=== PATIENT | male | born 1990 | race Caucasian/White ===

== ENCOUNTER 2017-11-19 20:37 | Emergency (ER) | payer BC ==
[2017-11-19] MEDS ORDERED: Bacitracin/Neomycin/Polymyxin B Oint 0.9 GM U/D Packet TOP ONE (20:44)
--- NOTE | 2017-11-19 21:08 | EDM.PDOC ---
ED HPI GENERAL MEDICAL PROBLEM - General Chief Complaint: General Stated Complaint: nose injury, top lip injury Time Seen by Provider: 11/19/17 20:37 Source of Information: Reports: Patient History Limitations: Reports: No Limitations - History of Present Illness INITIAL COMMENTS - FREE TEXT/NARRATIVE: Patient is a 27-year-old gentleman who was kicked in the face by a horse he has 2 lacerations one over the bridge of the nose and the second one over the left side of the upper lip the one in the upper lip is about 1 cm it is above the [place]cd[place] border no one on the pros on the bridge of the nose is about 1 cm but semicircular Onset: Today, Sudden Duration: Minutes:, Constant Location: Reports: Face (Bridge of the nose and left upper lip) Improves with: Reports: Cold Therapy Worsens with: Reports: Movement Context: Reports: Trauma Associated Symptoms: Reports: No Other Symptoms - Related Data Allergies Allergy/AdvReac Type Severity Reaction Status Date / Time No Known Allergies Allergy Verified 11/19/17 20:38 Home Meds: Home Meds Hydrocodone/Acetaminophen [Hydrocodon-Acetaminophen 5-325] 1 tab PO ONETIME [History] Social & Family History - Living Situation & Occupation Living situation: Reports: Single, with Significant Other Occupation: Employed ED ROS GENERAL - Review of Systems Review Of Systems: See Below Constitutional: Reports: No Symptoms HEENT: Reports: No Symptoms, Nosebleed, Nose Pain Respiratory: Reports: No Symptoms Cardiovascular: Reports: No Symptoms Endocrine: Reports: No Symptoms GI/Abdominal: Reports: No Symptoms : Reports: No Symptoms Musculoskeletal: Reports: No Symptoms Skin: Reports: No Symptoms, Wound (2 as described above) Neurological: Reports: No Symptoms Psychiatric: Reports: No Symptoms Hematologic/Lymphatic: Reports: No Symptoms Immunologic: Reports: No Symptoms ED EXAM, GENERAL - Physical Exam Exam: See Below Exam Limited By: No Limitations General Appearance: Alert, WD/WN, No Apparent Distress Ears: Normal External Exam, Normal Canal, Hearing Grossly Normal, Normal TMs Nose: Normal Inspection, Other (Nasal bleeding from the right nostril). No: No Blood Throat/Mouth: Normal Inspection, Normal Lips, Normal Teeth, Normal Gums, Normal Oropharynx, Normal Voice, No Airway Compromise Head: Atraumatic, Normocephalic Neck: Normal Inspection, Supple, Non-Tender, Full Range of Motion Respiratory/Chest: No Respiratory Distress, Lungs Clear, Normal Breath Sounds, No Accessory Muscle Use, Chest Non-Tender Cardiovascular: Normal Peripheral Pulses, Regular Rate, Rhythm, No Edema, No Gallop, No JVD, No Murmur, No Rub GI/Abdominal: Normal Bowel Sounds, Soft, Non-Tender, No Organomegaly, No Distention, No Abnormal Bruit, No Mass (Male) Exam: Deferred Rectal (Males) Exam: Deferred Back Exam: Normal Inspection, Full Range of Motion, NT Extremities: Normal Inspection, Normal Range of Motion, Non-Tender, Normal Capillary Refill, No Pedal Edema ED GENERAL MEDICAL PROCEDURES - Laceration/Wound Repair Left Upper Mid-Anterior Sides of Nose Appearance: Superficial Local Anesthesia - Lidocaine (Xylocaine): 1% Plain Local Anesthetic Volume: 2cc Skin Prep: Chlorhexidine (Hibiciens) Saline irrigation (cc's): 100 Exploration/Debridement/Repair: Wound Explored Closed with: Sutures Suture Size: other (5-0 nylon) Suture Type: Nylon Suture Size: other - Additional/Other Procedure(s) Other (Free Text) Procedure(s): A second procedure was done and there was a laceration over the lip upper lip on the left side which was clean and linear the area was prepped and draped after prepping and draping 1% lidocaine was used to infiltrate and obtain anesthesia using 5-0 nylon 3 interrupted sutures were placed patient tolerated well procedure Course - Vital Signs Last Recorded V/S: Last Vital Signs Temp 99.3 F 11/19/17 20:40 Pulse 77 11/19/17 20:55 Resp 18 11/19/17 20:40 BP 133/66 11/19/17 20:55 Pulse Ox 100 11/19/17 20:40 - Orders/Labs/Meds Meds: Medications Discontinued Medications Generic Name Dose Route Start Last Admin Trade Name Freq PRN Reason Stop Dose Admin Lidocaine HCl 5 ml 11/19/17 20:44 11/19/17 20:47 Xylocaine-Mpf 1% INJECT 11/19/17 20:45 5 ml ONETIME ONE Administration Neomycin/Polymyxin/Bacitracin 1 each 11/19/17 20:44 11/19/17 20:47 Triple Antibiotic Oint TOP 11/19/17 20:45 1 each ONETIME ONE Administration Departure - Departure Time of Disposition: 21:21 Disposition: Home, Self-Care 01 Clinical Impression: Laceration of nose Qualifiers: Encounter type: initial encounter Qualified Code(s): S01.21XA - Laceration without foreign body of nose, initial encounter Laceration of vermilion border of upper lip Qualifiers: Encounter type: initial encounter Qualified Code(s): S01.511A - Laceration without foreign body of lip, initial encounter - Discharge Information Referrals: PCP,None [Primary Care Provider] - Forms: ED Department Discharge Care Plan Goals: Patient is to carefully) by cleaning with soap and water sutures will be removed in 7 days may apply Neosporin to affected area
== END 2017-11-19 21:31 | disposition home or self-care (01) ==
LOC: LL.ED 20:37
DX: S01.21XA Laceration without foreign body of nose, initial encounter (principal); S01.511A Laceration without foreign body of lip, initial encounter; W55.12XA Struck by horse, initial encounter
CPT/HCPCS: 12011; 99282; 99283